=== PATIENT | female | born 1970 | race Caucasian/White ===

== ENCOUNTER 2017-08-02 15:55 | Emergency (ER) | payer OTHER, MEDICAID ==
[~2017-08-02] VITALS: Ht 160 cm; Wt 72.6 kg
[2017-08-02 16:08] VITALS: Ht 160 cm; Wt 72.6 kg
[2017-08-02 18:09] VITALS: BP 138/76
== END 2017-08-02 18:09 | disposition home or self-care (01) ==
LOC: ED 15:55
DX: M54.5 Low back pain (principal); Z88.8 Allergy status to other drugs, medicaments and biological substances; V43.32XA Unspecified car occupant injured in collision with other type car in nontraffic accident, initial encounter; Y93.89 Activity, other specified; Y99.8 Other external cause status; Y92.89 Other specified places as the place of occurrence of the external cause
CPT/HCPCS: J1885

== ENCOUNTER 2018-10-11 11:13 | Emergency (ER) | payer OTHER ==
[~2018-10-11] VITALS: Ht 121.9 cm; Wt 58.1 kg
[2018-10-11 11:17] VITALS: Ht 121.9 cm; Wt 58.1 kg
[2018-10-11 12:08] VITALS: BP 146/79
== END 2018-10-11 12:08 | disposition home or self-care (01) ==
LOC: ED 11:13
DX: M25.511 Pain in right shoulder (principal); G89.29 Other chronic pain; Z98.890 Other specified postprocedural states; Z88.8 Allergy status to other drugs, medicaments and biological substances; Z76.0 Encounter for issue of repeat prescription

== ENCOUNTER 2018-12-16 11:13 | Emergency (ER) | payer OTHER ==
[~2018-12-16] VITALS: Ht 149.9 cm; Wt 59.0 kg
[2018-12-16 11:24] VITALS: BP 155/80; Ht 149.9 cm; Wt 59.0 kg
== END 2018-12-16 14:35 | disposition home or self-care (01) ==
LOC: ED 11:13
DX: M54.12 Radiculopathy, cervical region (principal); G44.209 Tension-type headache, unspecified, not intractable; Z88.8 Allergy status to other drugs, medicaments and biological substances